=== PATIENT | male | born 1950 | race Caucasian/White ===

== ENCOUNTER 2019-03-27 13:00 | Observation (INO) ==
[2019-03-27] MEDS ORDERED: CeFAZolin Syr 3,000MG/30 ML 3,000 MG/30 ML SYRINGE IVPB ONE (13:08)
[2019-03-27] MEDS ORDERED: Ringers Solution, Lactated 1,000 ML IVC SCH (13:15)
[2019-03-27] MEDS ORDERED: Insulin Human Regular 10 UNIT in 0.9 % Sodium Chloride 10 ML IV ONE (13:18)
[2019-03-27] MEDS ORDERED: Famotidine 20 MG/2 ML VIAL IVP ONE (13:21)
[2019-03-27] MEDS ORDERED: Acetaminophen IV 1,000 MG/100 ML INFUS..BTL IVPB ONE (13:21)
[2019-03-27] MEDS ORDERED: *HR* FentaNYL (PF) 100 MCG/2 ML VIAL ONE ×2 (13:30→18:00)
[2019-03-27] MEDS ORDERED: Dexamethasone 4 MG/ML VIAL ONE (13:31)
[2019-03-27] MEDS ORDERED: Lidocaine -MPF 2% 2 ML VIAL ONE (13:31)
[2019-03-27] MEDS ORDERED: *HR* Propofol 200 MG/20 ML VIAL IVP ONE ×2 (13:31→18:02)
[2019-03-27] MEDS ORDERED: Ondansetron 4 MG/2 ML VIAL ONE ×2 (13:31→18:49)
[2019-03-27] MEDS ORDERED: MITOMYCIN 40 MG IR SCH (14:00)
[2019-03-27] MEDS ORDERED: WATER FOR INJ IR SCH (14:00)
[2019-03-27] MEDS ORDERED: Lidocaine HCL 4 ML Topical Solution (Laryng-O-Jet Kit Sterile Pak) TP ONE (14:38)
[2019-03-27] MEDS ORDERED: *HR* Succinylcholine 200 MG/10 ML VIAL IVP ONE ×2 (14:40→18:03)
[2019-03-27] MEDS ORDERED: *HR* OxyCODONE Immed Rel 5 MG TABLET PO PRN (14:51)
[2019-03-27] MEDS ORDERED: Ondansetron 4 MG/2 ML VIAL IVP ONE (14:51)
[2019-03-27] MEDS ORDERED: *HR* Promethazine 25 MG/ML VIAL IVP PRN (14:51)
[2019-03-27] MEDS ORDERED: *HR* Rocuronium Bromide 50 MG/5 ML VIAL ONE (15:24)
[2019-03-27] MEDS ORDERED: Neostigmine Methylsulfate 3 MG/3 ML SYRINGE ONE (16:00)
[2019-03-27] MEDS ORDERED: *HR* HYDROcodone/Acet 5/325 mg TABLET PO PRN ×2 (16:13→20:33)
[2019-03-27] MEDS: *HR* HYDROmorphone (PF) 1 MG/ML SYRINGE IVP PRN ×2 (17:27→17:50)
[2019-03-27] MEDS: *HR* Labetalol 20 MG/4 ML SYRINGE IVP PRN ×3 (17:28→19:51)
[2019-03-27] MEDS ORDERED: *HR* Midazolam HCl 2 MG/2 ML VIAL ONE (18:01)
[2019-03-27] MEDS ORDERED: Lidocaine -MPF 4% 5 ML AMPUL ONE (18:06)
[2019-03-27] MEDS ORDERED: *HR* PHENYLEPHRINE 1,000 MCG/10 ML SYRINGE IVP ONE (18:08)
[2019-03-27] MEDS ORDERED: EPHEDrine 50 MG/ML VIAL ONE (18:40)
[2019-03-27] MEDS ORDERED: Acetaminophen 325 MG TABLET PO PRN (20:33)
[2019-03-27] MEDS ORDERED: Naloxone 0.4 MG/ML INJ IVP PRN ×2 (20:33)
[2019-03-27] MEDS ORDERED: Dextrose Gel 15 GM/37.5 ML TUBE PO PRN ×2 (20:33)
[2019-03-27] MEDS ORDERED: D5% in Water 1,000 ML IVC PRN (20:33)
[2019-03-27] MEDS ORDERED: *HR* Belladonna Alkaloids/Opium 30 MG RECTAL SUPPOSITORY RC PRN (20:33)
[2019-03-27] MEDS ORDERED: Ondansetron 4 MG/2 ML VIAL IVP PRN (20:33)
[2019-03-27] MEDS ORDERED: 0.9 % Sodium Chloride 1,000 ML IVC SCH (20:33)
[2019-03-27] MEDS ORDERED: *HR* Dextrose 50 % in Water (Syg) 50 ML SYRINGE IVP PRN (20:33)
[2019-03-27] MEDS: Venlafaxine XR (24 HR) 75 MG CAP.ER.24H PO SCH (21:30)
[2019-03-27] MEDS: Insulin LISPRO 300 UNITS/3 ML VIAL SQ SCH (21:30)
[2019-03-28 04:56] LABS: Immature Granulocytes % 0.4 % (0-4); Lymphocytes % 9.9 %; Mean Corpuscular HGB Conc 33.8 g/dL (31.6-35.5); Mean Corpuscular Hemoglobin 28.5 pg (28.0-33.3); Mean Corpuscular Volume 84.4 fL (83.0-100.0); Mean Platelet Volume 9.1 fL (9.4-12.4); Monocytes # 0.5 K/mcL (0.0-1.3); Monocytes % 5.1 %; Neutrophils # 8.2 K/mcL (1.6-8.9); Platelet Count 128 K/mcL (140-400); Red Blood Count 4.74 M/mcL (4.19-5.50); Red Cell Distribution Width 14.4 % (11.5-14.5); Segmented Neutrophils % 84.6 %; White Blood Count 9.7 K/mcL (4.3-11.1)
[2019-03-28 05:02] LABS: Hemoglobin 13.5 g/dL (12.9-16.9)
[2019-03-28 06:40] VITALS: BP 141/69
[2019-03-28] MEDS ORDERED: Insulin DETEMIR 100 UNIT/ML X5UNITS SQ SCH (09:00)
[2019-03-28] MEDS ORDERED: *HR* SitaGLIPtin 100 MG TABLET PO SCH (09:00)
[2019-03-28] MEDS ORDERED: Bisoprolol/HCTZ 5/6.25 TABLET PO SCH (09:00)
[2019-03-28] MEDS: Insulin LISPRO 300 UNITS/3 ML VIAL SQ SCH (09:17)
[2019-03-28] MEDS: Venlafaxine XR (24 HR) 75 MG CAP.ER.24H PO SCH (09:17)
== END 2019-03-28 10:29 | disposition home or self-care (01) ==
LOC: 3ANU 13:00 → SAMDAY 13:00
PROVIDERS: ADMIT Urology; ATTEND Urology